=== PATIENT | male | born 1960 | race Caucasian/White ===

== ENCOUNTER → 2025-03-29 11:08 | Outpatient (REF) | payer MEDICARE, OTHER, SELFPAY | LOC: RAD 11:08 | PROVIDERS: ATTENDING PHYSICIAN Internal Medicine | DX: Z00.00 Encounter for general adult medical examination without abnormal findings (principal); M79.672 Pain in left foot; E78.5 Hyperlipidemia, unspecified | CPT/HCPCS: 73630 ==